=== PATIENT | female | born 1960 | race Caucasian/White ===

== ENCOUNTER 2025-06-29 07:56 | Day surgery (SDC) | payer BC ==
[2025-06-29] MEDS: Tetracaine HCl/PF 0.5% 4 ML Bottle EYEBOTH SCH (07:16)
[2025-06-29] MEDS: Lidocaine 1% PF 2 ML SDV INJECT SCH (07:16)
[2025-06-29] MEDS: Pilocarpine 4% Ophth Soln 15 ML Bot EYELF SCH (07:17)
[2025-06-29] MEDS: Cefuroxime 10 MG/ML SYRINGE EYELF SCH (07:17)
[2025-06-29] MEDS: Polymyxin B/Trimethoprim 10 ML Bottle EYELF SCH (07:17)
[2025-06-29] MEDS: Tropicamide 1% Ophth Soln 3 ML Bottle EYELF SCH (08:27)
== END 2025-06-29 10:10 ==
LOC: JD.SDS 07:56
PROVIDERS: ATTEND Ophthalmology
DX: H25.813 Combined forms of age-related cataract, bilateral (principal); H52.03 Hypermetropia, bilateral; H52.223 Regular astigmatism, bilateral; H43.813 Vitreous degeneration, bilateral; H40.033 Anatomical narrow angle, bilateral; H02.831 Dermatochalasis of right upper eyelid; H02.834 Dermatochalasis of left upper eyelid; H16.223 Keratoconjunctivitis sicca, not specified as Sjogren's, bilateral; H16.103 Unspecified superficial keratitis, bilateral; E78.00 Pure hypercholesterolemia, unspecified; Z79.899 Other long term (current) drug therapy
CPT/HCPCS: A9270-GY; J0697; J3490; V2632